=== PATIENT | male | born 1995 | race Two or more races ===

== ENCOUNTER 2018-08-02 21:20 | Emergency (ER) | payer OTHER ==
[~2018-08-02] VITALS: Ht 167.6 cm; Wt 52.2 kg
[2018-08-02] MEDS ORDERED: PERCOCET 5-3251 EACH PO (22:58)
== END 2018-08-02 23:54 | disposition home or self-care (01) ==
LOC: ER 21:20
DX: S62.392A Other fracture of third metacarpal bone, right hand, initial encounter for closed fracture (principal); W18.39XA Other fall on same level, initial encounter; Y93.89 Activity, other specified; Y92.89 Other specified places as the place of occurrence of the external cause; Y99.8 Other external cause status